=== PATIENT | male | born 1970 ===

== ENCOUNTER 2018-10-03 21:00 | Emergency (ER) | payer SELFPAY ==
[~2018-10-03] VITALS: Ht 182.9 cm; Wt 70.3 kg
--- NOTE | 2018-10-03 21:11 | NUR ---
pt ambulates to er with c/o having a piece of metal stuck in his left eye since yesterday. he denies difficulty seeing but states having hard time keeping his left eye open.
[2018-10-03] MEDS ORDERED: FLUORESCEIN SODIUM 1 MG STRIP ONE (21:29)
[2018-10-03] MEDS ORDERED: TETRACAINE HCL 0.5% OPHT DROP 2 ML BOTTLE ONE (21:29)
[2018-10-03] MEDS ORDERED: TETRACAINE HCL 0.5% OPHT DROP 2 ML BOTTLE OP ONE (21:30)
[2018-10-03] MEDS ORDERED: FLUORESCEIN SODIUM 1 MG STRIP OP ONE (21:30)
--- NOTE | 2018-10-03 21:37 | NUR ---
cowan lamp and slit lamp set up at bedside
--- NOTE | 2018-10-03 22:11 | NUR ---
Patient discharged to home in stable conditon. Written and verbal after care instructions given. Patient verbalizes understanding of instructions. Pt ambulated out of er in steady gait with girlfriend. all belongings with pt. vss. nad noted.
[2018-10-03 22:12] VITALS: BP 134/71
== END 2018-10-03 22:13 | disposition home or self-care (01) ==
LOC: ER 21:02
DX: T15.02XA Foreign body in cornea, left eye, initial encounter (principal); F17.200 Nicotine dependence, unspecified, uncomplicated; W26.8XXA Contact with other sharp object(s), not elsewhere classified, initial encounter; Y93.89 Activity, other specified; Y92.89 Other specified places as the place of occurrence of the external cause; Y99.8 Other external cause status
CPT/HCPCS: A4663